=== PATIENT | male | born 1990 | race Two or more races ===

== ENCOUNTER 2017-12-13 23:45 | Emergency (ER) | payer MEDICAID ==
[~2017-12-13] VITALS: Ht 167.6 cm; Wt 71.7 kg
[2017-12-13 23:50] VITALS: BP 121/83
--- NOTE | 2017-12-13 23:57 | NUR ---
NASIR NUNEZ AT BEDSIDE FOR EVAL.
[2017-12-14] MEDS ORDERED: LIDOCAINE 1%-EPI 1:100,000 20 ML VIAL TP ONE
[2017-12-14] MEDS ORDERED: LIDOCAINE 1% INJ 50 ML MDV IJ ONE (00:10)
[2017-12-14] MEDS ORDERED: TDAP [DIPH/PERTUSSIS/TET] 0.5 ML VIAL IM ONE ×3 (00:10)
--- NOTE | 2017-12-14 00:34 | NUR ---
PAC MAYRA AT BEDSIDE FOR LAC REPAIR.
== END 2017-12-14 01:22 | disposition home or self-care (01) ==
LOC: ER 23:46
DX: S61.412A Laceration without foreign body of left hand, initial encounter (principal); W26.0XXA Contact with knife, initial encounter; Y93.89 Activity, other specified; Y92.89 Other specified places as the place of occurrence of the external cause; Y99.8 Other external cause status
CPT/HCPCS: 12001; 90471; 90715 ×2; 99283; A4606; A6402 ×2; J3490; Z7610